=== PATIENT | male | born 1935 | race Caucasian/White ===

== ENCOUNTER 2019-12-26 15:07 | Emergency (ER) | payer MEDICARE, OTHER ==
[2019-12-26] MEDS ORDERED: Sodium Chloride 0.9% 1,000 ML IV SCH ×2 (15:45→16:45)
--- NOTE | 2019-12-26 15:48 | EDM.PDOC ---
ED HPI GENERAL MEDICAL PROBLEM - General Chief Complaint: Syncope Time Seen by Provider: 12/26/19 15:10 Source of Information: Reports: Patient History Limitations: Reports: Intoxication - History of Present Illness INITIAL COMMENTS - FREE TEXT/NARRATIVE: c/o near syncope pt awoke at 7a, ate bfast, did his exercises for his [place] R hip in preparation for his R THR scheduled 01/05 at [facility] with Dr Gallego then went to clinic and saw Cr Altamirano for his surgery preop exam (Dr More is PCP and is on vacation), EKG done in clinic he [place] 2 [place], returned home for dinner with his at 1p he went back to the shop with his sons, he continued to work outside (temp 88 today), he began to feel hot at 3p and sat in his car in the AC (no AC in his shop), as he rested his sons tried to rouse him and thought he was sluggish in response, pt reports no LOC, that he opened his eyes and saw white, no pain, no n/v his sons drove him to the ED and his color vision returned at the stop sign outside the ED, he was chatting on his cell phone when I spoke to him altho his clothes were still quite damp he states he feels fine now in the ED he stated he felt hot when he was in the pickup, does not feel hot now says he never smoked despite 6y in the service and access to free cigs, has one beer/d, lives with his for 63y, her health is good and she has not seen a physician in 5y pt has h/o prostate CA 10y ago, had RT and 80 seeds implanted no orchiectomy altho was on testerone for awhile more 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 [Unable to Verify Home Med List] 12/26/19 [History] ED ROS GENERAL - Review of Systems Review Of Systems: See Below Constitutional: Reports: Weakness, Fatigue, Other (hot, felt overheated, no PACHECO, no CP, no SOB) HEENT: Reports: No Symptoms Respiratory: Reports: No Symptoms. Denies: Shortness of Breath Cardiovascular: Reports: No Symptoms. Denies: Chest Pain Endocrine: Reports: No Symptoms GI/Abdominal: Reports: No Symptoms : Reports: No Symptoms Musculoskeletal: Reports: No Symptoms Skin: Reports: No Symptoms Neurological: Reports: No Symptoms Psychiatric: Reports: No Symptoms Hematologic/Lymphatic: Reports: No Symptoms Immunologic: Reports: No Symptoms ED EXAM, GENERAL - Physical Exam Exam: See Below Exam Limited By: No Limitations General Appearance: Alert, WD/WN, No Apparent Distress, Other (alert, conversant, very chatty, nonill, knowledgeable re his health hx) Eye Exam: Bilateral Eye: Normal Inspection Ears: Normal External Exam, Normal Canal, Hearing Grossly Normal Nose: Normal Inspection, Normal Mucosa Throat/Mouth: Normal Inspection Head: Atraumatic, Normocephalic Neck: Normal Inspection, Supple, Non-Tender, Full Range of Motion. No: Lymphadenopathy (R), Lymphadenopathy (L) Respiratory/Chest: No Respiratory Distress, Lungs Clear, Normal Breath Sounds, No Accessory Muscle Use, Chest Non-Tender Cardiovascular: Regular Rate, Rhythm, No Edema, No Gallop, No JVD, No Murmur, No Rub GI/Abdominal: Soft, Non-Tender, No Distention Back Exam: Normal Inspection, Full Range of Motion Extremities: Normal Inspection, Other (1-2+ edema to knees b/l) Neurological: Alert, Oriented, CN II-XII Intact, Normal Cognition, No Motor/Sensory Deficits Psychiatric: Normal Affect, Normal Mood, Other (cheerful, polite) Skin Exam: Warm, Dry, Intact, Normal Color, No Rash, Other (skin dry, forehead slightly damp, no beads of sweat, shirt but not pants are quite damp, pants are dry) Lymphatic: No Adenopathy Course - Vital Signs Last Recorded V/S: Last Vital Signs Temp 36.7 C 12/26/19 15:10 Pulse 79 12/26/19 15:10 Resp 14 12/26/19 15:10 BP 146/64 H 12/26/19 15:10 Pulse Ox 100 12/26/19 15:19 - Orders/Labs/Meds Orders: Active Orders 24 hr Category Date Time Status EKG Documentation Completion [RC] ASDIRECTED Care 12/26/19 15:35 Active URINALYSIS W/MICROSCOPIC [UA W/MICROSCOPIC] [URIN] Stat Lab 12/26/19 15:36 Ordered Sodium Chloride 0.9% [Normal Saline] 1,000 ml Med 12/26/19 15:45 Active IV ASDIRECTED Sodium Chloride 0.9% [Normal Saline] 1,000 ml Med 12/26/19 16:45 Ordered IV ASDIRECTED EKG 12 Lead [EK] Routine Ther 12/26/19 15:35 Ordered Medication Orders Sodium Chloride (Normal Saline) 1,000 mls @ 999 mls/hr IV ASDIRECTED ASAD Last Admin: 12/26/19 15:48 Dose: 999 mls/hr Documented by: YUMIKO Sodium Chloride (Normal Saline) 1,000 mls @ 999 mls/hr IV ASDIRECTED ASAD Last Admin: 12/26/19 16:50 Dose: 999 mls/hr Documented by: YUMIKO Labs: Laboratory Tests 12/26/19 12/26/19 12/26/19 Range/Units 15:50 15:50 15:50 WBC 4.6 (4.5-12.0) X10-3/uL RBC 3.90 L (4.30-5.75) x10(6)uL Hgb 12.2 L (13.5-17.8) g/dL Hct 36.3 (30.0-51.3) % MCV 93.0 (80-96) fL MCH 31.2 (27.7-33.6) pg MCHC 33.5 (32.2-35.4) g/dL RDW 12.9 (11.5-15.5) % Plt Count 187 (125-369) X10(3)uL MPV 7.3 L (7.4-10.4) fL Neut % (Auto) 64.2 (46-82) % Lymph % (Auto) 26.7 (13-37) % [place] % (Auto) 6.4 (4-12) % Eos % (Auto) 2 (1.0-5.0) % Baso % (Auto) 1 (0-2) % Neut # (Auto) 3.0 (1.6-8.3) # Lymph # (Auto) 1.2 (0.6-5.0) # [place] # (Auto) 0.3 (0.0-1.3) # Eos # (Auto) 0.1 (0.0-0.8) # Baso # (Auto) 0.0 (0.0-0.2) # Sodium 145 (135-145) mmol/L Potassium 3.7 (3.5-5.3) mmol/L Chloride 107 (100-110) mmol/L Carbon Dioxide 27 (21-32) mmol/L BUN 22 H (7-18) mg/dL Creatinine 1.1 (0.70-1.30) mg/dL Est Cr Clr Drug Dosing TNP Estimated GFR (MDRD) > 60 (>60) BUN/Creatinine Ratio 20.0 (9-20) Glucose 176 H (80-116) mg/dL Lactic Acid 2.4 H* (0.4-2.0) mmol/L Calcium 9.2 (8.6-10.2) mg/dL Total Bilirubin 0.4 (0.1-1.3) mg/dL AST 20 (5-25) IU/L ALT 22 (12-36) U/L Alkaline Phosphatase 90 (56-112) IU/L Troponin I (4.0-60.3) pg/mL C-Reactive Protein (0.5-0.9) mg/dL NT-Pro-B Natriuret Pep (<=450) pg/mL Total Protein 6.6 (6.0-8.0) g/dL Albumin 3.8 (3.2-4.6) g/dL Globulin 2.8 g/dL Albumin/Globulin Ratio 1.4 12/26/19 12/26/19 Range/Units 15:50 15:50 WBC (4.5-12.0) X10-3/uL RBC (4.30-5.75) x10(6)uL Hgb (13.5-17.8) g/dL Hct (30.0-51.3) % MCV (80-96) fL MCH (27.7-33.6) pg MCHC (32.2-35.4) g/dL RDW (11.5-15.5) % Plt Count (125-369) X10(3)uL MPV (7.4-10.4) fL Neut % (Auto) (46-82) % Lymph % (Auto) (13-37) % [place] % (Auto) (4-12) % Eos % (Auto) (1.0-5.0) % Baso % (Auto) (0-2) % Neut # (Auto) (1.6-8.3) # Lymph # (Auto) (0.6-5.0) # [place] # (Auto) (0.0-1.3) # Eos # (Auto) (0.0-0.8) # Baso # (Auto) (0.0-0.2) # Sodium (135-145) mmol/L Potassium (3.5-5.3) mmol/L Chloride (100-110) mmol/L Carbon Dioxide (21-32) mmol/L BUN (7-18) mg/dL Creatinine (0.70-1.30) mg/dL Est Cr Clr Drug Dosing Estimated GFR (MDRD) (>60) BUN/Creatinine Ratio (9-20) Glucose (80-116) mg/dL Lactic Acid (0.4-2.0) mmol/L Calcium (8.6-10.2) mg/dL Total Bilirubin (0.1-1.3) mg/dL AST (5-25) IU/L ALT (12-36) U/L Alkaline Phosphatase (56-112) IU/L Troponin I 10.8 (4.0-60.3) pg/mL C-Reactive Protein < 0.2 L (0.5-0.9) mg/dL NT-Pro-B Natriuret Pep 575 H (<=450) pg/mL Total Protein (6.0-8.0) g/dL Albumin (3.2-4.6) g/dL Globulin g/dL Albumin/Globulin Ratio Meds: Medications Generic Name Dose Route Start Last Admin Trade Name Freq PRN Reason Stop Dose Admin Sodium Chloride 1,000 mls @ 999 mls/hr 12/26/19 15:45 06/25/20 15:48 Normal Saline IV 999 mls/hr ASDIRECTED ASAD Administration Sodium Chloride 1,000 mls @ 999 mls/hr 12/26/19 16:45 12/26/19 16:50 Normal Saline IV 999 mls/hr ASDIRECTED ASAD Administration - Radiology Interpretation Free Text/Narrative:: overall pt appears to be doing well after 2 liter NS, pt voided clear urine prior to d/c which was inadvertently discarded and not sent to lab, pt agrees to rest and stay out of the heat and to increase fluids and f/u with his PCP in 4- 5d as he will need additional pre-op clearance pt states he plans to work on glass in his basement - Re-Assessments/Exams Free Text/Narrative Re-Assessment/Exam: 12/26/19 16:41 lactic acid 2.4, pt informed he will need a 2nd liter of NS, he is not happy about staying another hour but said he would do so, "if I leave, I will have other problems" feeling fine says he takes Fe TID for his known chronic mild anemia his R THR is scheduled a week from Mon, in 11 days hgb 12.2, was 13.4 form 3y ago, has been low at heme-onc office BUN 22, was 18 from 3y ago creat 1.1 now and stable, 1.2 from 3y ago BNP 575 and elevated just slightly, no comparison, c/w high output cardiac stress, suspect Departure - Departure Time of Disposition: 18:11 Disposition: Home, Self-Care 01 Condition: Good Clinical Impression: Near syncope, Heat exhaustion, Dehydration, moderate, Diaphoresis, RBBB with left anterior fascicular block, Normochromic normocytic anemia, Elevated lactic acid level, Elevated BUN, Dependent edema - Discharge Information *PRESCRIPTION DRUG MONITORING PROGRAM REVIEWED*: Not Applicable *COPY OF PRESCRIPTION DRUG MONITORING REPORT IN PATIENT SARAH: Not Applicable Instructions: Heat Exhaustion, Rehydration, Adult, Dehydration, Elderly Referrals: PCP,None [Ordering Only Provider] - Forms: ED Department Discharge Additional Instructions: Rest today and tomorrow. No heavy exertion or prolonged work outside in the hotter weather. See your physician in 4-5 days for additional evaluation and clearance for your hip surgery in 11 days. Return to Emergency Department if you are feeling worse in any way. Continue your usual medications. Sepsis Event Note (ED) - Focused Exam Vital Signs: Vital Signs Temp Pulse Resp BP Pulse Ox Pulse Ox 12/26/19 15:19 100 12/26/19 15:10 36.7 C 79 14 146/64 H 98 - My Orders Last 24 Hours: My Active Orders 12/26/19 15:35 EKG Documentation Completion [RC] ASDIRECTED EKG 12 Lead [EK] Routine 12/26/19 15:36 URINALYSIS W/MICROSCOPIC [UA W/MICROSCOPIC] [URIN] Stat 12/26/19 15:45 Sodium Chloride 0.9% [Normal Saline] 1,000 ml IV ASDIRECTED 12/26/19 16:45 Sodium Chloride 0.9% [Normal Saline] 1,000 ml IV ASDIRECTED - Assessment/Plan Last 24 Hours: My Active Orders 12/26/19 15:35 EKG Documentation Completion [RC] ASDIRECTED EKG 12 Lead [EK] Routine 12/26/19 15:36 URINALYSIS W/MICROSCOPIC [UA W/MICROSCOPIC] [URIN] Stat 12/26/19 15:45 Sodium Chloride 0.9% [Normal Saline] 1,000 ml IV ASDIRECTED 12/26/19 16:45 Sodium Chloride 0.9% [Normal Saline] 1,000 ml IV ASDIRECTED
== END 2019-12-26 18:35 | disposition home or self-care (01) ==
LOC: FB.ED 15:07
DX: T67.5XXA Heat exhaustion, unspecified, initial encounter (principal); E86.0 Dehydration; I45.2 Bifascicular block; D64.9 Anemia, unspecified; R74.0 Nonspecific elevation of levels of transaminase and lactic acid dehydrogenase [LDH]; R79.89 Other specified abnormal findings of blood chemistry; R60.0 Localized edema
CPT/HCPCS: 36415; 80053; 81001; 83605; 83880; 84484; 85025; 86140; 93005; 96360; 96361; 99284; J7030

== ENCOUNTER 2021-09-25 10:24 | Emergency (ER) | payer MEDICARE, OTHER ==
[2021-09-25] MEDS ORDERED: Alum Hydroxide/Mag Hydroxide 30 ML, Lidocaine 2% 15 ML PO ONE ×2 (12:11)
[2021-09-25] MEDS ORDERED: Ondansetron 4 MG/2 ML SDV IM ONE (15:32)
== END 2021-09-25 15:40 | disposition home or self-care (01) ==
LOC: FB.ED 10:24
DX: K57.32 Diverticulitis of large intestine without perforation or abscess without bleeding (principal); I45.2 Bifascicular block; I50.9 Heart failure, unspecified; R79.82 Elevated C-reactive protein (CRP); R79.89 Other specified abnormal findings of blood chemistry; R79.0 Abnormal level of blood mineral; Z79.899 Other long term (current) drug therapy; Z20.822 Contact with and (suspected) exposure to COVID-19
CPT/HCPCS: 36415; 71045; 80053; 81001; 83690; 83880; 84484; 85025; 85379; 86140; 93005; 96372; 99283; 99284-25; A9270-GY; J2405; U0002

== ENCOUNTER 2024-12-03 17:23 | Emergency (ER) | payer MEDICARE, OTHER ==
[2024-12-03] MEDS ORDERED: Sodium Chloride 0.9% 10 ML Syringe FLUSH PRN (17:49)
[2024-12-03 17:56] LABS: BASOPHILS PERCENT AUTO 0.4 % (0.3-3.8); EOSINOPHILS ABSOLUTE AUTO 0.1 x10-3/uL (0.0-0.6); EOSINOPHILS PERCENT AUTO 1.9 % (0.1-6.8); HEMATOCRIT 39.2 % (38.3-50.1); HEMOGLOBIN 13.5 g/dL (12.9-17.7); LYMPHOCYTES ABSOLUTE AUTO 3.9 x10-3/uL (0.5-4.5); LYMPHOCYTES PERCENT AUTO 49.5 % (15.8-45.3); MEAN CORPUSCULAR HEMOGLOBIN 31.3 pg (27.0-33.3); MEAN CORPUSCULAR HGB CONC 34.4 g/dL (28.7-35.3); MEAN CORPUSCULAR VOLUME 90.8 fL (80.8-98.7); MONOCYTES ABSOLUTE AUTO 0.6 x10-3/uL (0.0-1.2); MONOCYTES PERCENT AUTO 7.6 % (5.5-15.2); NEUTROPHILS ABSOLUTE AUTO 3.2 x10-3/uL (1.7-6.9); NEUTROPHILS PERCENT AUTO 40.6 % (40.3-71.8); PLATELET COUNT,PLT 182 x10(3)uL (117-477); RED BLOOD CELL COUNT 4.31 x10(6)uL (3.90-5.90); RED CELL DISTRIBUTION WIDTH 13.8 % (12.4-15.0); WHITE BLOOD CELL COUNT,WBC 7.9 x10-3/uL (3.2-10.1)
[2024-12-03 18:03] LABS: BLOOD UREA NITROGEN,BUN 19 mg/dL (7-18); BUN/CREATININE RATIO 21.1 (9-20); CALCIUM 9.3 mg/dL (8.6-10.2); CARBON DIOXIDE,CO2 25 mmol/L (21-32); CHLORIDE,CL 104 mmol/L (100-110); CREATININE 0.9 mg/dL (0.70-1.30); EST CRCL DRUG DOSING (CG) 50.21 mL/min; ESTIMATED GFR 82 mL/min (>60); GLUCOSE RANDOM 130 mg/dL (80-116); POTASSIUM,K 3.7 mmol/L (3.5-5.3); SODIUM,NA 139 mmol/L (135-145)
[2024-12-03 18:09] LABS: A/G RATIO 1.3; ALANINE AMINOTRANSFERASE,ALT 25 U/L (12-36); ALBUMIN 4.2 g/dL (2.9-4.5); ALKALINE PHOSPHATASE 101 IU/L (56-112); ASPARTATE AMNIOTRANSFERASE,AST 22 IU/L (5-25); BILIRUBIN TOTAL 0.6 mg/dL (0.1-1.3); PROTEIN TOTAL,TP 7.5 g/dL (6.0-8.0)
[2024-12-03 18:12] LABS: TROPONIN I 38.3 pg/mL (4.0-60.3)
== END 2024-12-03 19:02 | disposition home or self-care (01) ==
LOC: FB.ED 17:23
DX: I50.9 Heart failure, unspecified (principal); E86.0 Dehydration; I45.10 Unspecified right bundle-branch block; Z88.5 Allergy status to narcotic agent
CPT/HCPCS: 36415; 71045; 80053; 83880; 84484; 85025; 93005; 99285